=== PATIENT | female | born 1985 | race Caucasian/White ===

== ENCOUNTER → 2023-07-17 13:00 | Outpatient (BNVA) | payer OTHER, SELFPAY | PROVIDERS: Visit Provider Nurse Practitioner Women's Health | DX: N93.9 Abnormal uterine and vaginal bleeding, unspecified (principal) | CPT/HCPCS: 82670; 83001; 83002; 83036; 84146; 84403; 84443 ==

== ENCOUNTER → 2023-08-05 10:38 | Outpatient (BNVA) | payer OTHER, SELFPAY | PROVIDERS: Visit Provider Nurse Practitioner Women's Health | DX: N93.9 Abnormal uterine and vaginal bleeding, unspecified (principal) | CPT/HCPCS: 76830 ==

== ENCOUNTER 2023-11-07 05:52 | Day surgery (SDC) | payer OTHER, SELFPAY ==
[2023-11-07] VITALS (10 sets, daily range): BP systolic 121–157; BP diastolic 75–103; PULSE 60–98; RESP 12–19; TEMP 36.1–36.6; O2SAT 97–100; BMI 36.0
--- NOTE | 2023-11-07 01:42 | W.PM.OPSFHP ---
Same Day Surgery H&P Indication for Procedure/HPI DATE OF PROCEDURE: November 07, 2023 CHIEF COMPLAINT/INDICATIONFOR SURGICAL PROCEDURE: abnormal uterine bleeding PREOP DIAGNOSIS: abnormal uterine bleeding PLANNED PROCEDURE: Operation Date: 11/07/23 07:00 Proposed Procedures p Hysteroscopy Hysteroscopy w/ Endometrial Sampling 80082, N93.9(Not Applicable) - Venkat De La Rosa MD s Poylpectomy possible(Not Applicable) - Venkat De La Rosa MD 38 y.o. A2 h/o BTL 2013 periods regular but heavy prior to October 2022 then no periods in October, November, and December 2022 then irregular heavy bleeding since January 2023 sometimes bleeding for 2 days, followed by spotting, then 7 days of heavy bleeding Medications/Allergies* Home Medications Medication Instructions Recorded Confirmed Type amlodipine 10 mg tablet 10 mg PO DAILY 11/06/23 11/06/23 History furosemide 20 mg tablet 20 mg PO DAILY 11/06/23 11/06/23 History potassium chloride 10 mEq 10 meq PO DAILY 11/06/23 11/06/23 History tablet,extended release Allergies/Adverse Reactions Allergy/AdvReac Type Severity Reaction Status Date / Time procaine [From Novocain] Allergy ADR-Confusi Verified 11/06/23 10:47 on Pertinent History/Comorbid Conditions* Family History (Updated 07/17/23 @ 11:46 by Opal Sosa) Colon cancer Grandfather Ovarian cancer Grandmother Diabetes Grandfather Mother Father Grandmother Heart disease Grandfather Mother Grandmother Hyperlipidemia Grandfather Mother Father Grandmother Breast cancer Grandfather Hypertension Grandfather Mother Father Grandmother Thyroid disease Mother Pertinent Exam Findings alert, oriented x 3, clear to auscultation bilaterally and regular rate & rhythm Recommendations Surgery/Procedure today Coding Level of Care Code Acute Code for Chg Fwd Time Spent (min) 20
[2023-11-07 06:15] LABS: OR HCG Qualitative Urine Negative (Negative)
[2023-11-07] MEDS: sodium chloride 0.9% 1,000 ML 30 ML IV (06:29)
--- NOTE | 2023-11-07 06:40 | W.PM.OPSUD ---
Surgery/Procedure H&P Update DATE OF PROCEDURE: November 07, 2023 DATE H&P PERFORMED: 11/07/23 H&P UPDATE INFORMATION: I have reviewed H&P completed within last 30 days, I have examined patient prior to procedure and No changes to prior documentation PREOP DIAGNOSIS: abnormal uterine bleeding PLANNED PROCEDURE: Operation Date: 11/07/23 07:00 Proposed Procedures p Hysteroscopy Hysteroscopy w/ Endometrial Sampling 12494, N93.9(Not Applicable) - Venkat De La Rosa MD s Poylpectomy possible(Not Applicable) - Venkat De La Rosa MD
--- NOTE | 2023-11-07 06:57 | P.ANESASSM_ITS ---
Pre-Anesthetic Assessment Height/Weight: Height 1.7 m Weight 104.326 kg Temp Pulse Resp BP Pulse Ox O2 Del Method 97.0 F L 77 18 136/103 99 Room Air 11/07/23 06:10 11/07/23 06:10 11/07/23 06:10 11/07/23 06:10 11/07/23 06:10 11/07/23 06:11 Preop Diagnosis: abnormal uterine bleeding Operation Date: 11/07/23 07:00 Proposed Procedures p Hysteroscopy Hysteroscopy w/ Endometrial Sampling 97055, N93.9(Not Applicable) - Venkat De La Rosa MD s Poylpectomy possible(Not Applicable) - Venkat De La Rosa MD Familial anesthetic complications: None Was Beta Neil taken within 24 hours: N/A Was Clonidine taken within 24 hours: N/A Last intake: Intake Last Liquid Date 11/06/23 Last Liquid Time 23:55 Last Solid Date 11/06/23 Last Solid Time 22:30 Social No alcohol and No tobacco Exam alert, oriented x 3, clear to auscultation bilaterally and regular rate & rhythm Airway Mallampati: Class II Dentition: false CV/HEM Hypertension Metabolic Morbid Obesity Anesthetic Plan ASA status: 2 Anesthesia: General Risk of > 500 ml blood loss (7ml/kg in children): No Medications/Allergies Home Medications Medication Instructions Recorded Confirmed Last Taken Type medroxyprogesterone 10 mg tablet 10 mg PO DAILY #10 tabs 07/19/23 11/06/23 11/05/23 Rx (Provera) amlodipine 10 mg tablet 10 mg PO DAILY 11/06/23 11/06/23 11/05/23 History furosemide 20 mg tablet 20 mg PO DAILY 11/06/23 11/06/23 11/05/23 History potassium chloride 10 mEq 10 meq PO DAILY 11/06/23 11/06/23 11/05/23 History tablet,extended release Allergies Allergy/AdvReac Type Severity Reaction Status Date / Time procaine [From Novocain] Allergy ADR-Confusi Verified 11/06/23 10:47 on Current Medications Generic Name Dose Route Start Last Admin Trade Name Freq PRN Reason Stop Dose Admin Sodium Chloride 1,000 mls @ 30 mls/hr 11/07/23 06:00 11/07/23 06:29 Sodium Chloride 0.9% IV 11/08/23 05:59 30 mls/hr .Q24H SHADI Administration PFSH Anesthesia Family History Grandfather Breast cancer Colon cancer Diabetes Heart disease Hyperlipidemia Hypertension Mother Diabetes Heart disease Hyperlipidemia Hypertension Thyroid disease Father Diabetes Hyperlipidemia Hypertension Grandmother Diabetes Heart disease Hyperlipidemia Hypertension Ovarian cancer Data Anesthesia 11/07/23 06:49 Cardiac Studies: 2 No Data to Display
[2023-11-07 07:13] LABS: Anion Gap 14.7 (5-19); Blood Urea Nitrogen 4 mg/dL (6-20); Calcium 8.7 mg/dL (8.5-10.5); Carbon Dioxide 24 mmol/L (22-29); Chloride 106 mmol/L (98-107); Glomerular Filtration Rate 111.3 mL/min (90-130); Glucose 87 mg/dL (65-115); Osmolality Calculated 288 mOsm/kg (285-295); Potassium 3.7 mmol/L (3.5-5.1); Sodium 141 mmol/L (136-145)
--- NOTE | 2023-11-07 07:56 | SUR.PHASEI ---
0750 Pt rates pain at a 8 but does not want pain medication, wants to wait til she gets home and can take Ibuprofen or Tylenol.
[2023-11-07] MEDS: acetaminophen 1,000 MG/100 ML PIGGYBACK 400 MG IV (08:03)
--- NOTE | 2023-11-07 08:10 | PM.OP ---
Operative Report Date of procedure: November 07, 2023 Pre-op diagnosis: abnormal uterine bleeding Post-op diagnosis: abnormal uterine bleeding cervical lesion Post-op findings: 2 cm benign-appearing ectocervical polypoid lesion normal endometrial cavity No polyps / fibroids Minimal endometrial tissue Procedure done: hysteroscopy Curettage of uterus Biopsy of cervical lesion Implants: none Specimens removed/disposition: endometrial curettings cervical lesion Surgeon: Venkat De La Rosa MD Anesthesia: General Estimated blood loss (mL): 5 Complications: none Findings: 2 cm benign-appearing ectocervical polypoid lesion normal endometrial cavity No polyps / fibroids Minimal endometrial tissue Condition: stable Disposition: PACU Brief History: 38 y.o. A2 L4 h/o BTL 2013 Periods regular but heavy prior to October 2022 Then no periods in October, November, and December 2022 Then irregular heavy bleeding since January 2023 Sometimes bleeding for 2 days, followed by spotting, then 7 days of heavy bleeding Procedure: Informed consent signed. Patient was taken to the operating room. Anesthesia was induced. Patient was placed in dorsolithotomy position, prepped and draped for hysteroscopy. A bivalve speculum was placed in the vagina. A 2 cm benign-appearing polypoid lesion can be seen on the ectocervix at 5 o?clock. It was decided to excise the lesion with a knife. Lesion was sent to pathology. Bleeding was controlled with a figure of eight stitch of 2-0 chromic. No bleeding was seen. The anterior lip of the cervix was grasped with a sharp-toothed tenaculum. The cervix was serially dilated with Hegar dilators. . A hysteroscope was placed into the endometrial cavity. The endometrial cavity was seen to be normal. There were no polyps or fibroids. There was a small amount of endometrial tissue. The hysteroscope was then removed. Endometrial curettage was done with a sharp curette. Endometrial tissue was sent to pathology. The sharp-toothed tenaculum was removed. There was no bleeding from the endometrial cavity or cervix. The patient was then placed supine and awakened and taken to the PACU. Postop condition: stable EBL: 5 cc Sponge and instruments counts were normal x 2 Complications: none
--- NOTE | 2023-11-07 08:45 | ANE.PACU2 ---
Inpatient post-anesthesia follow up: Airway intact: Yes Vital signs: Temperature 97.6 F Pulse Rate 68 Respiratory Rate 18 Blood Pressure 157/87 Pulse Oximetry 100 Oxygen Delivery Me thod Room Air Oxygen Flow Rate 6 Fraction of Inspir ed Oxygen Hydration adequate: Yes Nausea and vomiting: No Pain level: 1 Mental status: Baseline
== END 2023-11-07 08:45 | disposition home or self-care (01) ==
PROVIDERS: Anesthesiology; PCP Nurse Practitioner Family; Visit Provider Obstetrics & Gynecology
PROC: 0UJD8ZZ Inspection of Uterus and Cervix, Via Natural or Artificial Opening Endoscopic (ICD-10-PCS; CPT 58555; principal; 2023-11-07 07:00)
PROC: (CPT 57500; 2023-11-07 07:00)
DX: N93.9 Abnormal uterine and vaginal bleeding, unspecified (principal); N72 Inflammatory disease of cervix uteri; I10 Essential (primary) hypertension; E66.01 Morbid (severe) obesity due to excess calories; Z68.30 Body mass index [BMI] 30.0-30.9, adult
CPT/HCPCS: 58558; 80048; 81025; 88305; J0131; J2405; J2704; J3010; J7030

== ENCOUNTER 2023-12-09 10:32 | Emergency (ER) | payer OTHER, SELFPAY ==
[2023-12-09 10:35] VITALS: BP 120/86; PULSE 128; RESP 17; TEMP 37.1; O2SAT 98; BMI 36.9
[2023-12-09 13:00] LABS: Basophils # 0.1 10^3/uL (0.0-0.1); Basophils % 0.5 %; Eosinophils # 0.1 10^3/uL (0.0-0.8); Eosinophils % 0.7 %; Hematocrit 45.6 % (36-47); Lymphocytes # 2.2 10^3/uL (0.8-4.8); Lymphocytes % 16.3 %; Mean Corpuscular HGB Conc 32.7 g/dL (30-55); Mean Corpuscular Hemoglobin 29.9 pg (27-33); Mean Corpuscular Volume 91.6 fl (85-98); Mean Platelet Volume 11.3 fL (7.4-10.4); Monocytes # 0.7 10^3/uL (0.2-0.9); Monocytes % 5.2 %; Neutrophils # 10.53 10^3/uL (1.8-7.7); Neutrophils % 76.9 %; Nucleated Red Blood Cells % 0 %; Platelet Count 227 10^3/cmm (157-399); Red Blood Count 4.98 10^6/uL (3.85-5.65); Red Cell Distribution Width 12.6 % (12.1-15.1); White Blood Count 13.69 10^3/uL (3.29-11.43)
[2023-12-09 13:18] LABS: HCG, Serum Qual Negative (Negative)
--- NOTE | 2023-12-09 13:47 | US_ITS ---
WS: [id number] Pelvic ultrasound, 12/09/2023 Clinical Data: abd pain Comparison: Pelvic ultrasound, 08/05/2023 Findings: The uterus measures 8.7 cm x 6.0 cm x 4.8 cm. The endometrium is 0.7 cm. No intrauterine or abnormal intrauterine mass is seen. The left ovary was not imaged The right ovary measures 3.8 cm x 2.9 cm x 2.6 cm with a simple cyst measuring 2.2 x 2.2 x 2.9 cm US/US pelv w/transvag [id number] Impression: 1. Negative uterus. 2. Simple right ovarian cyst. 3. Left ovary not imaged.
--- NOTE | 2023-12-09 13:48 | ED_ITS ---
HPI - Abdominal Pain 2 General: Chief Complaint: Abdominal Pain Stated Complaint: abd pain, n/v Time Seen by Provider: 12/09/23 13:11 Source: patient Mode of arrival: ambulatory Limitations: no limitations History of Present Illness: 38-year-old female who states she been h aving abdominal pain for 3 weeks states she seen Donald on Saturday did review her report and her CT scan showed an ovarian cyst she talked her OB Dr. De La Rosa who informed her to come to the ER she is still having pain in her lower abdomen she rates the pain a 5 out of 10 has had some slight dysuria denies any vomiting or diarrhea. Associated Symptoms: Denies chills, diarrhea, fever(s), nausea and vomiting Review of Systems 2 Const: Denies: fever(s), chills, body aches or change in appetite ENMT: Denies: throat pain or dental pain Card: Denies: chest pain Resp: Denies: dyspnea GI: Reports: abdominal pain; Denies: nausea, vomiting or diarrhea Musc: Denies: neck pain or back pain Skin/Breast: Denies: rash Neuro: Denies: headache(s) PFSH ED 2 PFSH: Family History Grandfather Breast cancer Colon cancer Diabetes Heart disease Hyperlipidemia Hypertension Mother Diabetes Heart disease Hyperlipidemia Hypertension Thyroid disease Father Diabetes Hyperlipidemia Hypertension Grandmother Diabetes Heart disease Hyperlipidemia Hypertension Ovarian cancer Physical Exam 2 Const: COMMON NORMALS: no acute distress, patient oriented x3 and healthy appearing HENMT: COMMON NORMALS: normocephalic and atraumatic HEAD & SCALP: n ormocephalic and atraumatic Neck/C-Spine: COMMON NORMALS: full ROM and supple Chest: COMMONS NORMALS: normal inspection of the chest and normal palpation of entire chest wall Resp: COMMON NORMALS: normal respiratory effort, No retractions, No use of accessory muscles and clear to auscultation bilaterally AUSCULTATION: clear to auscultation bilaterally Cardio: COMMON NORMALS: regular rate, regular rhythm and No murmurs present (Cardio) RATE: regular rate RHYTHM: regular rhythm GI: COMMON NORMALS: Normal to inspection, nondistended, normoactive bowel sounds present, Soft to palpation, non-tender and no masses PALPATION: Yes Soft to palpation Extremity: COMMON NORMALS: normal to inspection and full ROM Neuro: COMMON NORMALS: patient oriented x3, moves all extremities and no focal motor deficits Psych: COMMON NORMALS: mental status grossly normal, Normal thought process present and cooperative THOUGHT PROCESS: Normal thought process present Skin: COMMON NORMALS: no rashes or lesions noted and no wounds GENERAL SKIN EXAM: no rashes or lesions noted Course 2 Vital Signs: Vital signs: Vital Signs Temperature 98.8 F 12/09/23 10:35 Pulse Rate 63 12/09/23 15:30 Respiratory Rate 17 12/09/23 10:35 Blood Pressure 142/76 12/09/23 15:30 Pulse Oximetry 98 12/09/23 15:30 Oxygen Delivery Me thod Room Air 12/09/23 15:30 MDM - Abdominal Pain Medical Decision Making Patient presents with abdominal pain she does have an ovarian cyst no signs of torsion has a slight UTI blood work here is otherwise normal pains improved she stable for discharge we will place her on Keflex she has hydrocodone at home she is to follow-up with OB Dr. De La Rosa. She is return if worsening. Medical Records I reviewed the patient's medical records. Lab Data I reviewed the patient's lab results. 12/09/23 12:23 12/09/23 15:31 Labs/Radiology: Radiology Impressions Pelvic/Transvag US 12/09/23 13:47 Impression: 1. Negative uterus. 2. Simple right ovarian cyst. 3. Left ovary not imaged. Laboratory Results WBC 13.69 10^3/uL (3.29-11.43) H 12/09/23 12:23 RBC 4.98 10^6/uL (3.85-5.65) 12/09/23 12:23 Hgb 14.90 g/dL (11.27-16.99) 12/09/23 12:23 Hct 45.6 % (36-47) 12/09/23 12:23 MCV 91.6 fl (85-98) 12/09/23 12:23 MCH 29.9 pg (27-33) 12/09/23 12:23 MCHC 32.7 g/dL (30-55) 12/09/23 12:23 RDW 12.6 % (12.1-15.1) 12/09/23 12:23 Plt Count 227 10^3/cmm (157-399) 12/09/23 12:23 MPV 11.3 fL (7.4-10.4) H 12/09/23 12:23 Neut % (Auto) 76.9 % 12/09/23 12:23 Lymph % (Auto) 16.3 % 12/09/23 12:23 Coke % (Auto) 5.2 % 12/09/23 12:23 Eos % (Auto) 0.7 % 12/09/23 12:23 Baso % (Auto) 0.5 % 12/09/23 12:23 Neut # (Auto) 10.53 10^3/uL (1.8-7.7) H 12/09/23 12:23 Lymph # (Auto) 2.2 10^3/uL (0.8-4.8) 12/09/23 12:23 Coke # (Auto) 0.7 10^3/uL (0.2-0.9) 12/09/23 12:23 Eos # (Auto) 0.1 10^3/uL (0.0-0.8) 12/09/23 12:23 Baso # (Auto) 0.1 10^3/uL (0.0-0.1) 12/09/23 12:23 Nucleated RBC % (auto) 0 % 12/09/23 12: Nucleated RBCs # 0.0 /100WBC 12/09/23 12:23 Sodium 135 mmol/L (136-145) L 12/09/23 15:31 Potassium 3.4 mmol/L (3.5-5.1) L 12/09/23 15:31 Chloride 96 mmol/L (98-107) L 12/09/23 15:31 Carbon Dioxide 29 mmol/L (22-29) 12/09/23 15:31 Anion Gap 13.4 (5-19) 12/09/23 15:31 BUN 8 mg/dL (6-20) 12/09/23 15:31 Creatinine 0.7 mg/dL (0.5-0.9) 12/09/23 15:31 GFR Calculation 93.2 mL/min (90-130) 12/09/23 15:31 Glucose 93 mg/dL (65-115) 12/09/23 15:31 Calculated Osmolality 278 mOsm/kg (285-295) L 12/09/23 15:31 Calcium 9.1 mg/dL (8.5-10.5) 12/09/23 15:31 Total Bilirubin 1.0 mg/dL (0.15-1.2) 12/09/23 15:31 AST 64 U/L (0-32) H 12/09/23 15:31 ALT 85 U/L (0-33) H 12/09/23 15:31 Alkaline Phosphatase 194 U/L (35-105) H 12/09/23 15:31 Total Protein 7.7 g/dL (6.6-8.7) 12/09/23 15:31 Albumin 4.0 g/dL (3.5-5.2) 12/09/23 15:31 Globulin 3.7 g/dL (1.3-4.6) 12/09/23 15:31 Lipase 12 U/L (13-60) L 12/09/23 15:31 HCG, Qual Negative (Negative) 12/09/23 12:23 Urine Color Dark yellow (Yellow) A 12/09/23 13:43 Urine Appearance Cloudy (CLEAR) A 12/09/23 13:43 Urine pH 5 (5-7) 12/09/23 13:43 Ur Specific [place] 1.015 (1.005-1.030) 12/09/23 13:43 Urine Protein 1+ (Negative) H 12/09/23 13:43 Urine Glucose (UA) Norm (Normal) 12/09/23 13:43 Urine Ketones 1+ (Negative) H 12/09/23 13:43 Urine Blood 2+ (Negative) H 12/09/23 13:43 Urine Nitrate Negative (Negative) 12/09/23 13:43 Urine Bilirubin 2+ (Negative) H 12/09/23 13:43 Urine Urobilinogen 4+ mg/dL (Negative) H 12/09/23 13:43 Ur Leukocyte Esterase 2+ (Negative) H 12/09/23 13:43 Urine RBC 5-10 /hpf (0-2) H 12/09/23 13:43 Urine WBC 11-20 /hpf (0-5) 12/09/23 13:43 Ur Squamous Epith Cells 15-25 /hpf (0-5) H 12/09/23 13:43 Amorphous Sediment Not Reportable 12/09/23 13:43 Urine Bacteria 1+ /hpf (NONE) H 12/09/23 13:43 Urine Mucus 1+ /hpf 12/09/23 13:43 All radiology interpretation(s) finalized by discharge Discharge Plan Discharge Patient Disposition: Home Clinical Impression: Abdominal pain, UTI (urinary tract infection), Ovarian cyst Condition: Stable Prescriptions: New cephalexin 500 mg capsule 500 mg PO TID 7 Days Qty: 21 0RF No Action medroxyprogesterone [Provera] 10 mg tablet 10 mg PO DAILY Qty: 10 0RF potassium chloride 10 mEq tablet extended release 10 meq PO DAILY amlodipine 10 mg tablet 10 mg PO DAILY furosemide 20 mg tablet 20 mg PO DAILY Discharge Orders: Discharge ED (Routine); Ordered 12/09/23 Ordered By: Scotty Benitez Referrals: Venkat De La Rosa MD [Physician] - 1-3 days Harper Cardoso [Primary Care Provider] - Discharge Diet: Advance as tolerated Discharge Activity: Resume usual activity Patient Instructions: Ovarian Cyst (ED), Abdominal Pain (ED) Coding Level of Care Code ED Bench Manager for Brianna Youssef
[2023-12-09 14:12] LABS: Urine Color Dark Yellow (Yellow)
[2023-12-09 14:13] LABS: Add Urine Microscopic? YES; Bilirubin Urine 2+ (Negative); Blood Urine 2+ (Negative); Glucose Urine UA Norm (Normal); Ketones Urine 1+ (Negative); Leukocyte Esterase Urine 2+ (Negative); Nitrate Urine Negative (Negative); Protein Urine 1+ (Negative); Specific Gravity, Urine 1.015 (1.005-1.030); Urine Appearance Cloudy (CLEAR); Urobilinogen Urine 4+ mg/dL (Negative); pH Urine 5 (5-7)
[2023-12-09 14:21] LABS: Bacteria Urine 1+ /hpf; Mucus Urine 1+ /hpf; Squamous Epithelial Cell Urine 15-25 /hpf (0-5)
[2023-12-09 14:22] LABS: Add Urine Culture? No
[2023-12-09 15:03] VITALS: BP 134/91; PULSE 74; O2SAT 99
--- NOTE | 2023-12-09 15:06 | PC.NURSE ---
PT REFUSED IV AND PAIN MEDICATION. PT EDUCATED ON THE PURPOSE OF THE MEDICATIONS AND IV AND PT STILL CHOSE NOT TO HAVE INTERVENTIONS PERFORMED. NOTIFIED.
[2023-12-09 15:30] VITALS: BP 142/76; PULSE 63; O2SAT 98
[2023-12-09 16:07] LABS: Alanine Aminotransferase 85 U/L (0-33); Alkaline Phosphatase 194 U/L (35-105); Anion Gap 13.4 (5-19); Aspartate Amino Transferase 64 U/L (0-32); Blood Urea Nitrogen 8 mg/dL (6-20); Calcium 9.1 mg/dL (8.5-10.5); Carbon Dioxide 29 mmol/L (22-29); Chloride 96 mmol/L (98-107); Creatinine Clr Calc Pharmacy 135.8937; Globulin 3.7 g/dL (1.3-4.6); Glomerular Filtration Rate 93.2 mL/min (90-130); Glucose 93 mg/dL (65-115); Lipase 12 U/L (13-60); Osmolality Calculated 278 mOsm/kg (285-295); Potassium 3.4 mmol/L (3.5-5.1); Sodium 135 mmol/L (136-145); Total Protein 7.7 g/dL (6.6-8.7)
[2023-12-09 16:21] VITALS: BP 113/63; PULSE 62; O2SAT 99
--- NOTE | 2023-12-10 10:03 | DCPLANNER ---
Message sent to OBGYN for follow up with Dr. De La Rosa - Ovarian Cyst-
== END 2023-12-09 16:23 | disposition home or self-care (01) ==
PROVIDERS: Physician Assistant; Emergency Provider Emergency Medicine; PCP Nurse Practitioner Family
DX: N83.291 Other ovarian cyst, right side (principal); N39.0 Urinary tract infection, site not specified; R10.30 Lower abdominal pain, unspecified
CPT/HCPCS: 36415; 76830; 76856; 80053; 81001; 83690; 84703; 85025; 99284